=== PATIENT | female | born 1960 | race Caucasian/White ===

== ENCOUNTER 2017-08-22 15:06 | Emergency (ER) | payer MEDICAID ==
[~2017-08-22] VITALS: Ht 154.9 cm; Wt 51.7 kg
[~2017-08-22 15:06] MED LIST: BACL-63 PO; GABA250S2 PO; GLAT20KI SC; MEC25T PO
[2017-08-22 15:22] VITALS: BP 97/65
== END 2017-08-22 17:14 | disposition home or self-care (01) ==
LOC: ER 15:17
DX: S60.211A Contusion of right wrist, initial encounter (principal); F17.210 Nicotine dependence, cigarettes, uncomplicated; X58.XXXA Exposure to other specified factors, initial encounter; Y93.89 Activity, other specified; Y99.8 Other external cause status; Y92.89 Other specified places as the place of occurrence of the external cause
CPT/HCPCS: 73110; 73130

== ENCOUNTER 2024-08-12 20:08 | Emergency (ER) | payer MEDICAID ==
[~2024-08-12] VITALS: Ht 154.9 cm; Wt 50.0 kg
[~2024-08-12 20:08] MED LIST changes: -GABA250S2 PO; +GABA250S7 PO
[2024-08-12 20:24] VITALS: BP 0/0; PULSE 0; RESP 0; O2SAT 0
[2024-08-12] MEDS ORDERED: ACETAMINOPHEN 650 mg PER 20.3 mL UD PO ONE (22:15)
== END 2024-08-12 20:14 ==
LOC: EDBD 20:08 → ER 20:08
DX: I46.9 Cardiac arrest, cause unspecified (principal); Z79.899 Other long term (current) drug therapy; F17.200 Nicotine dependence, unspecified, uncomplicated
CPT/HCPCS: 92950